=== PATIENT | male | born 1950 | race Caucasian/White ===

== ENCOUNTER 2018-02-13 17:11 | Emergency (ER) | payer SELFPAY ==
[~2018-02-13] VITALS: Ht 160 cm; Wt 60.0 kg
[2018-02-13] MEDS ORDERED: SODIUM CHLORIDE 0.9% 1,000 ML IV ONE (20:41)
[2018-02-13 21:35] LABS: BASOPHILS % 1.2 % (0.0-2.0); EOSINOPHILS % 5.2 % (0.0-5.0); HEMATOCRIT. 39.8 % (42.0-52.0); HEMOGLOBIN. 13.3 g/dL (14.0-18.0); LYMPHOCYTES % 45.8 % (20.0-50.0); MEAN CORPUSCULAR HEMOGLOBIN 30.6 pg (28.0-32.0); MEAN CORPUSCULAR VOLUME 91.7 fL (80.0-94.0); MEAN PLATELET VOLUME 7.3 fl (7.4-10.4); MONOCYTES % 7.2 % (2.0-8.0); NEUTROPHILS % 40.6 % (40.0-76.0); PLATELET 259 x1000/uL (130-400); RED BLOOD CELL COUNT 4.34 mill/uL (4.7-6.1); RED CELL DISTRIBUTION WIDTH 16.7 % (11.6-14.6)
[2018-02-13 21:40] LABS: CHLORIDE 111 mEq/L (98-107)
[2018-02-13 22:03] LABS: ETHANOL BLOOD 362 mg/dL
[2018-02-13] MEDS ORDERED: ACETAMINOPHEN 325MG TABLET PO ONE ×2 (23:15→23:30)
[2018-02-14 04:51] LABS: *AMPHETAMINES SCREEN URINE NEGATIVE (NEGATIVE); *BARBITURATES SCREEN URINE NEGATIVE (NEGATIVE); *BENZODIAZEPINES SCREEN URINE NEGATIVE (NEGATIVE); *COCAINE SCREEN URINE NEGATIVE (NEGATIVE)
[2018-02-14 04:52] LABS: CANNABINOID URINE SCREEN NEGATIVE (NEGATIVE); METHADONE URINE SCREEN NEGATIVE (NEGATIVE); OPIATES URINE SCREEN NEGATIVE (NEGATIVE); PHENCYCLIDINE URINE SCREEN NEGATIVE (NEGATIVE)
[2018-02-14] MEDS ORDERED: LORAZEPAM 1MG TABLET PO ONE (08:15)
[2018-02-14] MEDS ORDERED: CHLORDIAZEPOXIDE 25MG CAPSULE PO ONE (08:15)
[2018-02-14 13:20] VITALS: BP 152/68
== END 2018-02-14 13:30 | disposition home or self-care (01) ==
LOC: ER 17:11
DX: F10.129 Alcohol abuse with intoxication, unspecified (principal); Y90.8 Blood alcohol level of 240 mg/100 ml or more
CPT/HCPCS: 36415; 70450; 80053; 80305; 85025; 96360; 96361; 99284; G0482; J7030

== ENCOUNTER 2018-06-18 07:32 | Emergency (ER) | payer SELFPAY ==
[~2018-06-18] VITALS: Ht 160 cm; Wt 60.0 kg
[2018-06-18 12:50] VITALS: BP 174/90
== END 2018-06-18 14:32 | disposition home or self-care (01) ==
LOC: ER 07:32
DX: Z59.0 Homelessness (principal); Z60.9 Problem related to social environment, unspecified
CPT/HCPCS: 99283; Z7610

== ENCOUNTER 2019-01-21 14:02 | Inpatient (IN) | payer SELFPAY ==
[~2019-01-21] VITALS: Ht 162.6 cm; Wt 62.1 kg
[2019-01-21 16:50] LABS: BASOPHILS % 1.1 % (0.0-2.0); EOSINOPHILS % 5.9 % (0.0-5.0); HEMATOCRIT. 42.9 % (42.0-52.0); HEMOGLOBIN. 14.3 g/dL (14.0-18.0); LYMPHOCYTES % 25.5 % (20.0-50.0); MEAN CORPUSCULAR HEMOGLOBIN 32.1 pg (28.0-32.0); MEAN PLATELET VOLUME 7.2 fl (7.4-10.4); MONOCYTES % 9.2 % (2.0-8.0); NEUTROPHILS % 58.3 % (40.0-76.0); PLATELET 406 x1000/uL (130-400); RED BLOOD CELL COUNT 4.47 mill/uL (4.7-6.1); RED CELL DISTRIBUTION WIDTH 17.8 % (11.6-14.6)
[2019-01-21 16:52] LABS: CHLORIDE 108 mEq/L (98-107)
[2019-01-21 17:29] LABS: ETHANOL BLOOD 324 mg/dL
[2019-01-21 20:57] LABS: *BARBITURATES SCREEN URINE NEGATIVE (NEGATIVE)
[2019-01-21 20:58] LABS: *AMPHETAMINES SCREEN URINE NEGATIVE (NEGATIVE); *BENZODIAZEPINES SCREEN URINE NEGATIVE (NEGATIVE); *COCAINE SCREEN URINE NEGATIVE (NEGATIVE); METHADONE URINE SCREEN NEGATIVE (NEGATIVE); OPIATES URINE SCREEN NEGATIVE (NEGATIVE); PHENCYCLIDINE URINE SCREEN NEGATIVE (NEGATIVE)
[2019-01-21 20:59] LABS: CANNABINOID URINE SCREEN NEGATIVE (NEGATIVE)
[2019-01-22] MEDS ORDERED: CHLORDIAZEPOXIDE 25MG CAPSULE PO ONE (11:30)
[2019-01-22] MEDS ORDERED: LORAZEPAM 1MG TABLET PO ONE (11:30)
[2019-01-22] MEDS: CHLORDIAZEPOXIDE 10MG CAPSULE PO SCH ×2 (12:33→16:23)
[2019-01-22] MEDS ORDERED: CHLORDIAZEPOXIDE 10MG CAPSULE PO SCH (15:45)
[2019-01-23] MEDS ORDERED: CHLORDIAZEPOXIDE 25MG CAPSULE PO ONE (14:30)
[2019-01-23 14:45] VITALS: BP 141/91
[2019-01-23] MEDS ORDERED: CHLORDIAZEPOXIDE 25MG CAPSULE PO NR (15:00)
[2019-01-23] MEDS ORDERED: IPRATROPIUM/ALBUTEROL 0.5-3(2.5)MG/3ML NEB NEB PRN (16:45)
[2019-01-23] MEDS ORDERED: ONDANSETRON HCL 4MG/2ML INJ IV PRN (16:45)
[2019-01-23] MEDS ORDERED: DOCUSATE SODIUM 100MG CAPSULE PO PRN (16:45)
[2019-01-23] MEDS ORDERED: CLONIDINE 0.1MG TABLET PO PRN (16:45)
[2019-01-23] MEDS ORDERED: LORAZEPAM 2MG/ML CPJ IV PRN (16:45)
[2019-01-23] MEDS ORDERED: MAGNESIUM/ALUMINUM HYDROXIDE/SIMETHICONE 30ML UDC PO PRN (16:45)
[2019-01-23] MEDS ORDERED: NITROGLYCERIN 0.4MG TABLET SL SL PRN (16:45)
[2019-01-23] MEDS ORDERED: KETOROLAC 15MG/ML VIAL IV PRN (16:45)
[2019-01-23] MEDS ORDERED: ACETAMINOPHEN 325MG TABLET PO PRN (16:45)
[2019-01-23] MEDS ORDERED: GUAIFENESIN 200MG/10ML SUGAR FREE UDC PO PRN (16:45)
[2019-01-23 20:00] VITALS: BP_SYST 123; BP_SYST 151; BP_DIAS 69; BP_DIAS 76
[2019-01-23] MEDS ORDERED: KCL 20MEQ/100ML PREMIX 100 ML IV NR (20:00)
[2019-01-23 20:26] LABS: BASOPHILS % 0.6 % (0.0-2.0); EOSINOPHILS % 6.7 % (0.0-5.0); HEMOGLOBIN. 13.6 g/dL (14.0-18.0); LYMPHOCYTES % 18.1 % (20.0-50.0); MEAN CORPUSCULAR HEMOGLOBIN 32.3 pg (28.0-32.0); MEAN CORPUSCULAR VOLUME 94.6 fL (80.0-94.0); MEAN PLATELET VOLUME 8.2 fl (7.4-10.4); MONOCYTES % 6.8 % (2.0-8.0); NEUTROPHILS % 67.8 % (40.0-76.0); PLATELET 276 x1000/uL (130-400); RED BLOOD CELL COUNT 4.23 mill/uL (4.7-6.1); RED CELL DISTRIBUTION WIDTH 17.4 % (11.6-14.6)
[2019-01-23 20:30] LABS: CHLORIDE 101 mEq/L (98-107)
[2019-01-23] MEDS ORDERED: MVI, ADULT NO.1 10 ML, FOLIC ACID 1 MG, THIAMINE HCL 100 MG in SODIUM CHLORIDE 0.9% 1,0... IV ONE ×4 (20:30)
[2019-01-23 20:40] LABS: TOTAL IRON BINDING CAPACITY 311 ug/dL (250-450)
[2019-01-23] MEDS ORDERED: FAMOTIDINE 20MG TABLET PO SCH (21:00)
[2019-01-23] MEDS: ENOXAPARIN 40MG/0.4ML SYR SUBCUT SCH (21:03)
[2019-01-23] MEDS: SUCRALFATE 1 G/10 ML UDC PO SCH (21:22)
[2019-01-23] MEDS: CHLORDIAZEPOXIDE 10MG CAPSULE PO SCH (22:02)
[2019-01-24] VITALS: BP 165/84
[2019-01-24 00:51] LABS: *AMPHETAMINES SCREEN URINE NEGATIVE (NEGATIVE)
[2019-01-24 00:52] LABS: *BARBITURATES SCREEN URINE NEGATIVE (NEGATIVE); *BENZODIAZEPINES SCREEN URINE PRESUMTIVE POSITIVE (NEGATIVE); *COCAINE SCREEN URINE NEGATIVE (NEGATIVE); METHADONE URINE SCREEN NEGATIVE (NEGATIVE); OPIATES URINE SCREEN NEGATIVE (NEGATIVE)
[2019-01-24 00:54] LABS: CANNABINOID URINE SCREEN NEGATIVE (NEGATIVE); PHENCYCLIDINE URINE SCREEN NEGATIVE (NEGATIVE)
[2019-01-24 04:00] VITALS: BP 133/80
[2019-01-24] MEDS: CHLORDIAZEPOXIDE 10MG CAPSULE PO SCH (05:54)
[2019-01-24] MEDS: SUCRALFATE 1 G/10 ML UDC PO SCH ×5 (05:54→21:22)
[2019-01-24 08:00] VITALS: BP 121/76
[2019-01-24 12:00] VITALS: BP 140/78
[2019-01-24 16:00] VITALS: BP 116/50
[2019-01-24] MEDS: ENOXAPARIN 40MG/0.4ML SYR SUBCUT SCH (21:19)
[2019-01-24] MEDS: FAMOTIDINE 40MG TABLET PO SCH (21:22)
[2019-01-25] VITALS: BP 104/60
[2019-01-25 04:00] VITALS: BP 142/82
[2019-01-25] MEDS: SUCRALFATE 1 G/10 ML UDC PO SCH ×3 (06:10→16:16)
[2019-01-25 08:00] VITALS: BP 110/68
[2019-01-25] MEDS: FAMOTIDINE 40MG TABLET PO SCH (08:39)
[2019-01-25 12:00] VITALS: BP 155/71
[2019-01-25 16:46] VITALS: BP 110/68
== END 2019-01-25 17:55 | disposition home or self-care (01) | DRG 775 ==
LOC: ER 14:02 → 5WST 01-23 14:39 → EDBEDREQ 01-23 15:02 → ENRESERV 01-23 15:33
PROVIDERS: ADMIT Internal Medicine; ATTEND Internal Medicine
DX: F10.229 Alcohol dependence with intoxication, unspecified (principal); F10.239 Alcohol dependence with withdrawal, unspecified; E87.6 Hypokalemia; R74.0 Nonspecific elevation of levels of transaminase and lactic acid dehydrogenase [LDH]; Z59.0 Homelessness; Z71.41 Alcohol abuse counseling and surveillance of alcoholic
CPT/HCPCS: 36415; 80305; 80320; 82746; 83036; 83540; 83550; 83735; 97116; 97162; 99283; J1650; J2060; J3411; J3480; J3490; J7030; G0480